=== PATIENT | female | born 2000 | race Caucasian/White ===

== ENCOUNTER 2019-07-14 14:31 | Emergency (ER) | payer OTHER ==
[2019-07-14] MEDS ORDERED: Ondansetron INJ* 2 MG/ML VIAL IV ONE (15:28)
[2019-07-14] MEDS ORDERED: NS 0.9% 1000 ML** 1,000 ML IV ONE (15:28)
--- NOTE | 2019-07-14 15:31 | UC ---
General HPI - HPI Summary HPI Summary: Vomitting since 6 am today approx once every hour. Also having diarrhea several times today and her head hurts. Water nor food are staying down. Feels very dehydrated and feels dizzy when standing. Last meal eaten was dinner last evening and she felt fine after that. - History of Current Complaint Chief Complaint: UCGI Stated Complaint: VOMITING Time Seen by Provider: 07/14/19 15:23 Hx Obtained From: Patient Hx Last Menstrual Period: this week Onset/Duration: Sudden Onset, Lasting Days Onset Severity: Mild Current Severity: Severe Pain Intensity: 7 Associated Signs & Symptoms: Positive: Diarrhea, Nausea, Vomiting - Allergy/Home Medications Allergies/Adverse Reactions: Allergies Allergy/AdvReac Type Severity Reaction Status Date / Time amoxicillin Allergy Rash Verified 07/14/19 15:13 Penicillins Allergy Rash Verified 07/14/19 15:13 Home Medications: Home Medications Control DAILY 07/14/19 [History] PMH/Surg Hx/FS Hx/Imm Hx Previously Healthy: Yes - Surgical History Surgical History: Yes Surgery Procedure, Year, and Place: 2016-eye surgery - Family History Known Family History: Positive: Hypertension - Social History Alcohol Use: Occasionally Substance Use Type: None Smoking Status (MU): Never Smoked Tobacco Review of Systems All Other Systems Reviewed And Are Negative: Yes Constitutional: Positive: Fatigue Gastrointestinal: Positive: Abdominal Pain, Vomiting, Diarrhea, Nausea Neurological: Positive: Headache Is Patient Immunocompromised?: No Physical Exam Triage Information Reviewed: Yes Appearance: Well-Nourished, Ill-Appearing, Pain Distress Vital Signs: Initial Vital Signs Temp 99.5 F 07/14/19 15:06 Pulse 121 07/14/19 15:06 Resp 18 07/14/19 15:06 BP 117/75 07/14/19 15:06 Pulse Ox 98 07/14/19 15:06 Vital Signs Reviewed: Yes Eye Exam: Normal ENT Exam: Normal Dental Exam: Normal Neck exam: Normal Respiratory Exam: Normal Respiratory: Positive: Chest non-tender, Lungs clear, Normal breath sounds Cardiovascular: Positive: No Murmur, Pulses Normal, Tachycardia Abdominal Exam: Normal Bowel Sounds: Positive: Present Musculoskeletal Exam: Normal Neurological Exam: Normal Psychological Exam: Normal Skin Exam: Normal Course/Dx - Course Course Of Treatment: hx obtained, exam performed, meds reviewed, IV normal saline and zofran given. zofran prescribed. - Diagnoses Provider Diagnosis: Vomiting and diarrhea, Dehydration Discharge ED - Sign-Out/Discharge Documenting (check all that apply): Patient Departure All imaging exams completed and their final reports reviewed: No Studies - Discharge Plan Condition: Stable Disposition: HOME Prescriptions: Ondansetron ODT TAB* [Zofran 4 MG Odt TAB*] 4 mg PO Q8H PRN #12 tab.odt PRN Reason: Nausea Patient Education Materials: Dehydration (ED), Acute Nausea and Vomiting (ED) Referrals: No Primary Care Phys,NOPCP [Primary Care Provider] - Additional Instructions: 1. Take the zofran as needed. 2. CLear fluids as tolerated, bland foods as tolerated. 3. If still not able to keep things down even with zofran, follow up in ER. - Billing Disposition and Condition Condition: STABLE Disposition: Home
[2019-07-14] MEDS ORDERED: Ondansetron ODT TAB* 4 MG PO ONE (16:23)
[2019-07-14 17:25] VITALS: BP 108/69
== END 2019-07-14 17:53 | disposition home health service (06) ==
LOC: UCCORT 14:31
DX: E86.0 Dehydration (principal); R11.2 Nausea with vomiting, unspecified; R19.7 Diarrhea, unspecified; R10.9 Unspecified abdominal pain; Z88.0 Allergy status to penicillin
CPT/HCPCS: 81003; 99202; A9270-GY; G0463; J2405